=== PATIENT | male | born 1935 | race Caucasian/White ===

== ENCOUNTER → 2021-01-05 | Outpatient (CLI) | payer OTHER ==
[~2021-01-05] MED LIST: ACETAMINOPHEN-1 EAC1 PO; AMLODIPINE BESYL5 MG PO; BAYER CHEWABLE81 MG PO; CIALIS20 MG PO; FINASTERIDE5 MG PO; FLOMAX 0.4 MG0.4 MG PO; LEVAQUIN500 MG PO; LEVOTHYROXINE150 MCG PO; MYRBETRIQ50 MG PO; PRESERVISION A1 EAC2 PO; SOLIFENACIN SUC10 MG PO; TYLENOL PM EX-1 EACH PO; VITAMIN B-122500 MCG SL; super beta prostate
[2021-01-05 10:29] LABS: HEMOGLOBIN 14.6 gm/dl (14.0-17.5); RED BLOOD COUNT 4.74 M/UL (4.20-5.50); WHITE BLOOD COUNT 7.8 K/UL (4.5-11.0)
[2021-01-05 11:10] LABS: BUN/CREATININE RATIO 14 (0-10)
== END ==
LOC: LAB 09:50
PROVIDERS: Internal Medicine Cardiovascular Disease
DX: R94.39 Abnormal result of other cardiovascular function study (principal); I20.8 Other forms of angina pectoris; R53.83 Other fatigue; I47.2 Ventricular tachycardia; R00.2 Palpitations; I49.3 Ventricular premature depolarization
CPT/HCPCS: 36415; 71046; 80048; 80061; 80076; 84439; 84443; 84481; 85025

== ENCOUNTER → 2021-02-25 | Outpatient (CLI) | payer OTHER ==
[2021-02-25 12:56] LABS: HEMOGLOBIN 13.9 gm/dl (14.0-17.5); RED BLOOD COUNT 4.49 M/UL (4.20-5.50); WHITE BLOOD COUNT 6.1 K/UL (4.5-11.0)
[2021-02-25 13:17] LABS: BUN/CREATININE RATIO 25 (0-10)
== END ==
LOC: LAB 11:20
PROVIDERS: Internal Medicine Cardiovascular Disease
DX: R94.39 Abnormal result of other cardiovascular function study (principal); I20.8 Other forms of angina pectoris; I47.2 Ventricular tachycardia
CPT/HCPCS: 36415; 80048; 85025

== ENCOUNTER → 2021-03-01 | Outpatient (CLI) | payer OTHER | LOC: CATH 08:11 | DX: R94.39 Abnormal result of other cardiovascular function study (principal); I20.8 Other forms of angina pectoris; I47.2 Ventricular tachycardia | CPT/HCPCS: 99152; C1769; C1894; J1644; J2250; J3010; J7030; Q9967 ==

== ENCOUNTER 2021-08-23 05:46 | Emergency (ER) | payer OTHER | END 2021-08-23 07:03 | disposition home or self-care (01) | LOC: ER1 05:46 | DX: F41.9 Anxiety disorder, unspecified (principal); I10 Essential (primary) hypertension; Z95.0 Presence of cardiac pacemaker | CPT/HCPCS: 99283; Q0177 ==